=== PATIENT | female | born 1980 ===

== ENCOUNTER 2019-05-23 00:08 | Inpatient (IN) | payer OTHER, SELFPAY ==
[2019-05-23] MEDS ORDERED: hydrALAZINE 20 MG/ML VIAL SLOW IVP PRN ×3 (00:34→03:44)
[2019-05-23 00:43] VITALS: BMI 25.7
[2019-05-23] MEDS ORDERED: Lactated Ringer's 1,000 ML IV SCH (00:45)
--- NOTE | 2019-05-23 00:45 | PDOC.LDHP ---
Labor and Delivery H&P Chief complaint: contractions HPI: 38 y/o at 39w0d, patient of Dr. Rojas, presents with ctx and bloody show. Denies heavy VB, LOF, or other OB concerns. Patient scheduled for repeat LTCS on 05/30 but desires if labors. Has URI sx. ROS neg for HEENT, cv, pulm, gi, gu, neuro, psych, skin, musculoskeletal or constitutional symptoms other than mentioned above. OB History Details: 1 prior term LTCS Current complications: none Past Medical History: None Current medications: pre-bautista vitamins, iron, other (claritin) Previous surgical history: low tranverse CS Allergies/Adverse Reactions: Allergies Allergy/AdvReac Type Severity Reaction Status Date / Time No Known Allergies Allergy Verified 05/23/19 00:34 Social history: none - Physical Exam Vital signs reviewed and normal: yes General: NAD, resting Lungs: nonlabored breathing Abdomen: gravid Extremeties: no edema FHT: category 1 (135, mod variability, + accels, no decels) [place] contractions every: 4-5 mins - Vaginal Exam cm dilated: 4 Effacement: 100% Station: 0 - Assessment L&D Assessment: term patient in labor - Plan Plan: admit to L&D, labor augmentation if indicated, informed consent obtained, anesthesia consult for pain management
[2019-05-23] MEDS ORDERED: Misoprostol 200 MCG TAB PR PRN (01:57)
[2019-05-23] MEDS ORDERED: Ibuprofen 800 MG TAB PO PRN (01:57)
[2019-05-23] MEDS ORDERED: Promethazine HCl 25 MG/ML VIAL IM PRN ×4 (01:57→13:26)
[2019-05-23] MEDS ORDERED: Ondansetron PF 4 MG/2 ML Vial IVP PRN ×2 (01:57→03:44)
[2019-05-23] MEDS ORDERED: Carboprost 250 MCG/ML AMP IM PRN (01:57)
[2019-05-23] MEDS ORDERED: Methylergonovine 0.2 MG/ML VIAL IM PRN ×2 (01:57→03:44)
[2019-05-23] MEDS ORDERED: Acetaminophen 500 MG TAB PO PRN (01:57)
[2019-05-23] MEDS ORDERED: NS / Oxytocin 40 units/1000ml 1,000 ML IV PRN (01:57)
[2019-05-23] MEDS ORDERED: Lidocaine 1% (PF) 30 ML VIAL SC PRN (01:57)
[2019-05-23] MEDS ORDERED: Butorphanol Tartrate 1 MG/ML VIAL SLOW IVP PRN (01:57)
[2019-05-23] MEDS ORDERED: HYDROcodone/Acetaminophen 5/325 mg Tablet PO PRN ×3 (01:57→03:44)
[2019-05-23] MEDS ORDERED: Diphenoxylate HCl/Atropine Tablet PO PRN ×2 (01:57)
[2019-05-23] MEDS: Lactated Ringer's 1,000 ML IV SCH ×2 (02:00→11:08)
[2019-05-23 02:31] LABS: Hemoglobin 14.1 g/dL (12.0-16.0); Mean Corpuscular HGB CONC 33.9 g/dL (32.0-36.0); Mean Corpuscular Hemoglobin 30.3 pg (27.0-31.0); Mean Corpuscular Volume 89.4 fL (78.0-98.0); Mean Platelet Volume 8.4 fL (7.4-10.4); Platelet Count 219 thou/uL (130-400); RBC Distribution Width 13.1 % (11.5-14.5); Red Blood Cell (RBC) Count 4.67 mill/uL (4.20-5.40); White Blood Cell (WBC) Count 13.5 thou/uL (4.8-10.8)
[2019-05-23 03:08] LABS: HBSAg Index 0.15 S/CO (0-0.99); Hep B Surf Ag Non-Reactive S/CO (NonReactive)
[2019-05-23] MEDS ORDERED: Lanolin Ointment 7 GM TUBE TOP PRN (03:44)
[2019-05-23] MEDS ORDERED: Milk Of Magnesia 30 ML UDCUP PO PRN (03:44)
[2019-05-23] MEDS ORDERED: Preparation H Ointment 28 GM TUBE PR PRN (03:44)
[2019-05-23] MEDS ORDERED: Zolpidem Tartrate 5 MG TAB PO PRN (03:44)
[2019-05-23] MEDS ORDERED: Benzocaine-Menthol 82.5 ML CAN TOP PRN (03:44)
[2019-05-23] MEDS ORDERED: Misoprostol 200 MCG TAB VAG PRN (03:44)
[2019-05-23] MEDS ORDERED: Bisacodyl 10 MG SUPP PR PRN (03:44)
[2019-05-23] MEDS ORDERED: NS / Oxytocin 40 units/1000ml 1,000 ML IV SCH (03:45)
--- NOTE | 2019-05-23 03:47 | PDOC.OPDEL ---
OB Operative/Delivery Note Delivery Dr/Surgeon: MD Mariam Pre-Delivery Diagnosis: active labor Procedure/Post Delivery Dx: vaginal delivery after CS Weeks gestation: 39 Anesthesia: none - Findings A Sex: male Weight: 7 lb 1 oz - 1 min: 7 - 5 min: 9 - Additional Findings/Plan Placenta delivered: spontaneous Repaired Obstetrical Laceration: 3rd degree Estimated blood loss: 215 ml QBL Post delivery plan: routine recovery
[2019-05-23] MEDS ORDERED: Ketorolac Tromethamine 30 MG/ML VIAL IVP SCH (05:15)
[2019-05-23 05:19] LABS: Syphilis Antibody Nonreactive (Nonreactive); Syphilis Antibody Index 0.04 S/CO (<1.00 Non-Reactive)
[2019-05-23 06:23] LABS: #Lymphocytes 0.9 thou/uL (1.20-3.40); #Monocytes 0.4 thou/uL (0.11-0.59); #Neutrophils 17.5 thou/uL (1.40-6.50); %Basophils 0.1 % (0.0-1.0); %Eosinophils 0.2 % (0.0-10.0); %Monocytes 1.9 % (0.0-10.0); %Neutrophils 92.9 % (42.0-75.0); Hemoglobin 10.6 g/dL (12.0-16.0); Mean Corpuscular HGB CONC 33.7 g/dL (32.0-36.0); Mean Corpuscular Hemoglobin 29.9 pg (27.0-31.0); Mean Corpuscular Volume 88.7 fL (78.0-98.0); Mean Platelet Volume 7.8 fL (7.4-10.4); Platelet Count 226 thou/uL (130-400); RBC Distribution Width 12.9 % (11.5-14.5); Red Blood Cell (RBC) Count 3.54 mill/uL (4.20-5.40); White Blood Cell (WBC) Count 18.9 thou/uL (4.8-10.8)
[2019-05-23 06:27] LABS: INR-International Normal Ratio 1.1; PTT 28.2 SEC (22.9-36.1)
--- NOTE | 2019-05-23 06:30 | PDOC.BPN ---
- Brief Progress Note Called to room for evaluation of significant perineal pain. Examination revealed a large hematoma that ruptured and drained upon palpation with large clots and brisk bleeding. Tavo-seal applied with continued brisk bleeding and a running chromic stitch was used to reapproximate defect. Bleeding continued and another round of Tavo-seal was applied with a vaginal packing. Will continue to monitor for 30 minutes. If bleeding has not improved, will take to OR for further evaluation under anesthesia. H/H, coags pending. Vitals stable at this time.
--- NOTE | 2019-05-23 06:52 | PDOC.BPN ---
- Brief Progress Note Patient now dropping BPs. Will proceed with transfusion PRBCs. Will take to OR for further evaluation and management.
[2019-05-23] MEDS ORDERED: Fentanyl 100 MCG/2 ML VIAL ONE ×3 (06:59→09:42)
[2019-05-23] MEDS ORDERED: Midazolam HCl 2 mg/2 ml Vial ONE (06:59)
[2019-05-23] MEDS ORDERED: Promethazine HCl 25 MG/ML VIAL SLOW IVP PRN (08:37)
[2019-05-23] MEDS ORDERED: Ondansetron HCl/PF 4 MG/2 ML Vial IVP PRN (08:37)
--- NOTE | 2019-05-23 08:47 | OP ---
DATE OF PROCEDURE: 05/23/2019 PREOPERATIVE DIAGNOSES: 1. A 38-year-old female, status post successful vaginal after cesarian section with precipitous delivery on arrival with noted vaginal laceration and third-degree laceration. 2. Development of vaginal hematoma with persistent vaginal bleeding. POSTOPERATIVE DIAGNOSES: 1. A 38-year-old female, status post successful vaginal after cesarian section with precipitous delivery on arrival with noted vaginal laceration and third-degree laceration. 2. Development of vaginal hematoma with persistent vaginal bleeding. 3. Left vaginal sidewall hematoma with active bleeding, status post hematoma evacuation and repair. PROCEDURES PERFORMED: 1. Exam under anesthesia. 2. Evacuation of left vaginal sidewall hematoma. 3. Repair of left vaginal sidewall laceration. 4. Superficial closure of perineal laceration. PRODUCTION OR PLANT ENGINEER SURGEON: Livier Becerra MD, OB Hospitalist Service. ESTIMATED BLOOD LOSS: From the procedure, 25 mL. FINDINGS: Under anesthesia, there was an expanded left vaginal sidewall hematoma. This was evacuated after the stitch was removed. Some active bleeding on the sidewall was noted. Otherwise, no active bleeders in the upper right vaginal vault or posterior vaginal vault, or anterior vault noted. Some minimal separation of area of perineal repair. COUNTS: Correct x2. DISPOSITION: To PACU and then will be observed in the LICU upon further blood transfusion. DESCRIPTION OF PROCEDURE: The patient was taken back to the operating room for better exposure. She was given general endotracheal anesthetic agent and then placed in dorsal lithotomy position with Tesfaye stirrups. A Landa catheter was already in place. After prep was carried out, an exam under anesthesia was performed. There was expansion of the left vaginal sidewall with some oozing and bleeding noted. The stitches there were removed. A Breisky retractor was placed on the patient's right vaginal sidewall along with a Layton retractor blade. The hematoma was evacuated. The upper apex of the laceration was identified. A #1 chromic suture in a running locking fashion was placed in this area, securing hemostasis. The suture was cut. The vagina was then copiously irrigated. We observed the left vaginal sidewall, anterior sidewall, and posterior vagina with no other active bleeders noted or hematoma expansion. Vagina again was irrigated. We reapproximated the perineal laceration, superficial separation with a 2-0 chromic suture in a running locking fashion with hemostasis. The vagina again was irrigated. We observed with no active further heavy bleeding noted. The patient was then awakened and transferred to PACU and then plan for observation in LICU for completion of her transfusion with serial hematocrit to confirm her hemodynamic stability. Job ID: [id number]
[2019-05-23] MEDS ORDERED: Measles/Mumps/Rubella 10 MCG/0.5 ML VIAL SC ONE (09:00)
[2019-05-23] MEDS ORDERED: Varicella virus, LIVE 0.5 ML VIAL SC ONE (09:00)
[2019-05-23] MEDS ORDERED: Adacel (T-DAP) 0.5 ML SYRINGE IM ONE (09:00)
[2019-05-23] MEDS ORDERED: PROPOFOL 200 MG/20 ML VIAL ONE (10:23)
[2019-05-23] MEDS ORDERED: Succinylcholine Chloride 20 MG/ML 10 ml SYRINGE FS ONE (10:23)
[2019-05-23] MEDS ORDERED: Lidocaine 1% PF 5 ML VIAL ONE (10:23)
[2019-05-23] MEDS ORDERED: Meperidine HCl/PF 25 MG/ML VIAL SLOW IVP SCH (10:45)
[2019-05-23] MEDS ORDERED: Promethazine HCl 25 MG/ML VIAL IM SCH (10:45)
[2019-05-23] MEDS: Ferrous Sulfate 325 MG TAB PO SCH ×2 (11:06→19:24)
[2019-05-23] MEDS: Prenatal Vitamin 1 TAB PO SCH (11:06)
[2019-05-23] MEDS: Docusate Calcium (SURFAK) 240 MG CAP PO SCH ×2 (11:06→21:27)
--- NOTE | 2019-05-23 11:59 | PDOC.PP ---
Post Progress Note Post Day #: 0 Subjective: Pt is a 38yo female ppd#0 complicates with left vaginal wall hematoma requiring surgical intervention. was called to the room for severe pain. on exam the side wall feels to be expanding again. Pt given 50demerol and 12.5 phenergan for good pain control. Getting CT, coags and cbc now. Will pack with kerlex when she is back may use balkri ballon with packing intravaginally to help with pressure. vital signs stable and normal at this time. pulse 70s. bp 98/57 after demerol. Vital Signs (12 hours) Temp Pulse Resp BP BP Pulse Ox 05/23/19 11:20 77 18 92/50 L 98 05/23/19 10:50 86 18 98/57 L 97 05/23/19 10:16 98.9 F 89 18 104/68 98 05/23/19 00:32 99.1 F 95 17 136/60 98 Weight Weight 61.689 kg Result Diagrams: 05/23/19 06:00 Additional Labs: Post Labs Blood Type O POSITIVE 05/23/19 03:02 Hep Bs Antigen Non-Reactive S/CO (NonReactive) 05/23/19 02:18
[2019-05-23 12:08] LABS: Mean Corpuscular HGB CONC 33.6 g/dL (32.0-36.0); Mean Corpuscular Hemoglobin 29.8 pg (27.0-31.0); Mean Corpuscular Volume 88.7 fL (78.0-98.0); Mean Platelet Volume 8.1 fL (7.4-10.4); Platelet Count 187 thou/uL (130-400); RBC Distribution Width 12.6 % (11.5-14.5); Red Blood Cell (RBC) Count 3.36 mill/uL (4.20-5.40); White Blood Cell (WBC) Count 18.1 thou/uL (4.8-10.8)
[2019-05-23] MEDS ORDERED: Iopamidol 370 76% 100 ML VIAL ONE (12:10)
[2019-05-23 12:15] LABS: INR-International Normal Ratio 1.1; PTT 27.4 SEC (22.9-36.1); Prothrombin Time 14.4 SEC (12.0-14.7)
--- NOTE | 2019-05-23 12:51 | CT ---
CT PELVIS WITH IV CONTRAST: INDICATION: Vaginal delivery yesterday with surgical repair. Evaluate for vaginal sidewall hematoma. FINDINGS: Enlarged uterus with prominent endometrium. There is a large hematoma in the perineum to the left of midline which appears to extend from the upper vaginal wall to the vaginal vault and prod uces mass effect on the lower uterine segment on the left. This produces mass effect on the rectum. This hematoma is measured at approximately 10 cm AP dimension in the axial plane. There is free fluid in the pelvis consistent with status. IMPRESSION: 1. uterus. The endometrium is thickened and heterogeneous. Retained products of gestati on cannot be excluded. 2. Large hematoma involving the upper vagina, vaginal vault, and extending to the lower uterine segm ent producing mass effect from the left. There is mass effect on the rectum. POS: OFF
--- NOTE | 2019-05-23 13:44 | PDOC.EVN ---
Event Note - Event Note Event Note: ct with 10cm hematoma putting pressure on lower uterin segment and rectum. packed with one roll of kerlex and bakri ballon on side of hematoma filled with 30cc saline (point at which it became difficult to add more.) will follow h/h coags. if continues to fall with repeat ct and decide next course of actions. txa now 1gm followed by 1gm over 8h 05/23/19' 1726 cbc and coags reviewed. fibrinogen unchanged at 300, h/h dropped to 9.3/27.8 platelets stable at 195,000 pt reports she is doing well. pain over all better vitals stable bp 100-110s/60s-70s pulse 70s-80s pt is pale but nailbeds and conjuntiva with good color I no signs of continued blood loss. will recheck h/h 8pm. if stablizing will discontinue serial testing. 05/23/19 2100 repeat labs h/h 8.8/25.7 platelets 185 PT/inr/ptt fibrinogen unchanged pt vitals have remained unchanged. u/o has been 100cc in the last hour, 400cc in prior shift. Pt has good color, is warm to touch, has good cappilary refill. will repeat h/h in four hours. Will hold off reimaging as coag profile and platelets all essentially unchanged.
[2019-05-23] MEDS ORDERED: Tranexamic Acid 1,000 MG in Sodium Chloride 0.9% 250 ML 250 ML IVPB SCH (13:45)
[2019-05-23] MEDS: HYDROcodone/Acetaminophen 5/325 mg Tablet PO PRN ×2 (15:01→19:24)
[2019-05-23] MEDS: Ibuprofen 800 MG TAB PO SCH ×2 (15:01→21:27)
[2019-05-23] MEDS: Tranexamic Acid 1,000 MG in Sodium Chloride 0.9% 100 ML IVPB SCH ×2 (15:02→16:33)
[2019-05-23 15:53] LABS: Hemoglobin 9.3 g/dL (12.0-16.0); Mean Corpuscular HGB CONC 33.6 g/dL (32.0-36.0); Mean Corpuscular Hemoglobin 30.1 pg (27.0-31.0); Mean Corpuscular Volume 89.4 fL (78.0-98.0); Mean Platelet Volume 8.1 fL (7.4-10.4); Platelet Count 195 thou/uL (130-400); RBC Distribution Width 12.7 % (11.5-14.5); Red Blood Cell (RBC) Count 3.11 mill/uL (4.20-5.40); White Blood Cell (WBC) Count 19.9 thou/uL (4.8-10.8)
[2019-05-23 15:59] LABS: INR-International Normal Ratio 1.2; PTT 26.8 SEC (22.9-36.1); Prothrombin Time 14.8 SEC (12.0-14.7)
[2019-05-23] MEDS ORDERED: Polyethylene Glycol 3350 17 GM Packet PO SCH (18:15)
[2019-05-23 20:09] LABS: Hemoglobin 8.8 g/dL (12.0-16.0)
[2019-05-23 20:31] LABS: Hemoglobin 8.8 g/dL (12.0-16.0); Mean Corpuscular HGB CONC 34.1 g/dL (32.0-36.0); Mean Corpuscular Hemoglobin 30.3 pg (27.0-31.0); Mean Corpuscular Volume 88.7 fL (78.0-98.0); Mean Platelet Volume 7.9 fL (7.4-10.4); Platelet Count 186 thou/uL (130-400); RBC Distribution Width 12.7 % (11.5-14.5); Red Blood Cell (RBC) Count 2.89 mill/uL (4.20-5.40); White Blood Cell (WBC) Count 16.4 thou/uL (4.8-10.8)
[2019-05-23 20:42] LABS: INR-International Normal Ratio 1.2; PTT 27.3 SEC (22.9-36.1); Prothrombin Time 14.8 SEC (12.0-14.7)
[2019-05-24] MEDS: Tranexamic Acid 1,000 MG in Sodium Chloride 0.9% 100 ML IVPB SCH ×2 (00:05→07:44)
[2019-05-24 00:29] LABS: Hemoglobin 8.2 g/dL (12.0-16.0); Mean Corpuscular HGB CONC 34.3 g/dL (32.0-36.0); Mean Corpuscular Hemoglobin 30.4 pg (27.0-31.0); Mean Corpuscular Volume 88.8 fL (78.0-98.0); Mean Platelet Volume 7.7 fL (7.4-10.4); Platelet Count 189 thou/uL (130-400); RBC Distribution Width 13.1 % (11.5-14.5); Red Blood Cell (RBC) Count 2.69 mill/uL (4.20-5.40)
[2019-05-24] MEDS ORDERED: Sodium Chloride 0.9% 10 ML ONE (02:00)
[2019-05-24 04:40] LABS: Mean Corpuscular Hemoglobin 30.4 pg (27.0-31.0); Mean Corpuscular Volume 89.4 fL (78.0-98.0); Mean Platelet Volume 7.8 fL (7.4-10.4); Platelet Count 183 thou/uL (130-400); RBC Distribution Width 13.1 % (11.5-14.5); Red Blood Cell (RBC) Count 2.63 mill/uL (4.20-5.40); White Blood Cell (WBC) Count 16.5 thou/uL (4.8-10.8)
[2019-05-24] MEDS: Ibuprofen 800 MG TAB PO SCH ×3 (06:20→21:36)
[2019-05-24] MEDS: HYDROcodone/Acetaminophen 5/325 mg Tablet PO PRN (06:31)
--- NOTE | 2019-05-24 07:46 | PRG ---
DATE OF SERVICE: 05/24/2019 SUBJECTIVE: The patient is a 38-year-old female, who is day 1, postoperative day 1, status post a vaginal after complicated by a vaginal wall hematoma, requiring surgery, followed by persistent development of hematoma. Postoperatively, the patient reported the return of significant vaginal and vulvar pain. On exam, it is noticeable that there is a development of some mucosal mass and firmness on that left side. CT scan demonstrated a large hematoma developing up to 10 cm in the largest dimension. The decision was made to pack the vagina with a roll of Kerlix and a Bakri balloon, which was inflated to 30 mL of water for added pressure. The serial labs continued to show stable coags, fibrinogen, platelets. Her hemoglobin continued to drop until about 4 o'clock this morning, where it stabilized at about 8. Vital signs throughout the day and night have always remained stable with her pressures in the 100s, pulse in the 70s to 80s, and urine output improving as the night went on. The patient also reported after the packing, that her pain had improved and has not had significant pain since that time. CT scan was repeated at 1 o'clock this morning given the continued drop in her hemoglobin. Final report is not available, but on inspection, it does not appear to be expanding at all as compared to the first CT. OBJECTIVE: VITAL SIGNS: Most recent, blood pressure is 118/68, temperature 98.1, pulse 101, respiratory rate, and O2 saturation 97%. Urine output; she has had a total out of 1500 mL with 1100 mL on the last 12 hours. LABORATORY DATA: Most recent hemogram, white count 16.5 down from 19.9, hemoglobin of 8, hematocrit 23.5, and platelets of 183,000. ASSESSMENT AND PLAN: The patient is a 38-year-old female, day 1, complicated by a vulvar hematoma, status post surgery, complicated by redevelopment of a vulvar hematoma, which seems to resolve with packing. We have removed the packing this morning. Landa catheter will remain in place through the morning hours just to watch her urine output. H and H have been scheduled for noon. Should this remain stable, catheter will be removed and the patient can proceed with a fairly routine care. Of note, she has had a cough through the night. She does report that this cough has been present for weeks now. I have added dextromethorphan to her regimen as she is on hydrocodone, which may service some cough suppressant also. The patient has also been on Lysteda since yesterday morning. I will be transitioning her over to p.o., as the patient had been on IV Lysteda since her first couple doses. Dr. Ceballos is the oncoming physician, who will be assuming care. Job ID: [id number]
[2019-05-24] MEDS: Ferrous Sulfate 325 MG TAB PO SCH ×2 (08:55→18:03)
[2019-05-24] MEDS: Docusate Calcium (SURFAK) 240 MG CAP PO SCH ×2 (08:55→21:36)
[2019-05-24] MEDS: Polyethylene Glycol 3350 17 GM Packet PO SCH (08:55)
[2019-05-24] MEDS: Prenatal Vitamin 1 TAB PO SCH (08:55)
[2019-05-24] MEDS ORDERED: Tranexamic Acid 650 MG TAB PO SCH (09:00)
--- NOTE | 2019-05-24 09:08 | PRG ---
DATE OF SERVICE: 05/24/2019 Please labelled this as day #1/postop day #1. In brief, I assumed care this morning from Dr. Gomez and was briefed on this patient. This patient had a successful , but developed a left vaginal/ vulvar expanding hematoma that required OR intervention with Dr. Becerra and Dr. Ballesteros. This was subsequently packed by Dr. Gomez and also tamponaded with the balloon. At this point, the packing is out and so was the balloon. Landa catheter remains. She has received 2 units of packed cells. Her estimated blood loss by the record and by verbal check out from the other physicians is at her blood loss, was around 1500 mL at max. Her last hemoglobin value was 8 with a hematocrit of 24. I have seen the patient at bedside along with Dr. Jocy White. We have reviewed her care up to this time and have done a visual assessment of the perineum. I do not see any evidence of expanding hematoma at this time. SUBJECTIVE: The patient is alert and feeling well. OBJECTIVE: VITAL SIGNS: Reviewed. She is afebrile. LABORATORY DATA: Hematocrit is 24 as discussed previously. Landa in use. MEDICATIONS GIVEN: She is currently on Lysteda. ASSESSMENT: This is a patient from a vaginal after section with a left hematoma, requiring surgical intervention. Status post 2 units packed cells. PLAN: 1. I will order to remove the Landa now (Yanet, our RN is with me now). 2. I will stop the Lysteda as there is no further evidence of bleeding. 3. The patient also did receive tranexamic acid IV and so, we will stop the oral medication. 4. We will just observe the patient today and see if there are any changes. 5. The patient had a repeat CT scan to look for any evidence of expansion, but clinically there is none. That second CT scan result is still pending. We will follow up. 6. No acute needs at this time. Job ID: [id number] [facility]
--- NOTE | 2019-05-24 12:22 | CT ---
PRELIMINARY REPORT/[facility]/EMERGENCY AFTER HOURS PROCEDURE: CT Pelvis with Intravenous Contrast HISTORY: F/u hematoma. Vaginal delivery 05/22/2019 with surgical repair. COMPARISON: 05/23/2019. FINDINGS: RETRO/PERITONEUM: Moderate persistent blood and mild free air in the lower abdomen and pelvis. LYMPH NODES: No lymphadenopathy. PELVIC ORGANS: Enlarged uterus with endometrial fluid and air. Fluid-containing defect in the ventral lower uterine segment, query recent surgery or ruptured old incision. Landa de compressed urinary bladder. VASCULATURE: Unremarkable. BODY WALL: Healed ventral wall incision, query prior . Mild decrease in size of the large 1 1.1 (CC) x 9.1 (AP) cm left posterior perineal hematoma extending to the left mid pelvis, with mass-e ffect on the lower uterine segment and rectum. Tamponade vaginal/cervical canal balloon catheter wit h the tip in the lower uterine segment. BONES: No fracture or suspicious osseous abnormality. IMPRESSION: Decreased size of the hematoma extending from the left mid pelvis to the perineum. ELECTRONICALLY SIGNED BY: Jovita Patricio M.D. May 24, 2019 2:27:56 AM PHLEBOTOMIST SUPERVISOR/INSTRUCTOR This report is intended for review by the ordering physician only, in accordance of law. If you recei ve this report in error, please call [facility] at [phone]. FINAL REPORT I agree with the preliminary report provided. There is decrease in size of the hematoma extending fr om the left mid pelvis into the perineum. POS: BH
[2019-05-24 12:23] LABS: Hemoglobin 8.6 g/dL (12.0-16.0); Mean Corpuscular Hemoglobin 30.6 pg (27.0-31.0); Mean Corpuscular Volume 89.9 fL (78.0-98.0); Mean Platelet Volume 7.9 fL (7.4-10.4); Platelet Count 215 thou/uL (130-400); RBC Distribution Width 13.1 % (11.5-14.5); White Blood Cell (WBC) Count 18.9 thou/uL (4.8-10.8)
[2019-05-24] MEDS ORDERED: Iopamidol 370 76% 50 ML VIAL FS ONE (13:09)
[2019-05-24] MEDS: Dextromethorphan Polistirex 30 MG/5 ML (89 ML BOTTLE) PO PRN (14:37)
--- NOTE | 2019-05-24 16:24 | PDOC.EVN ---
Event Note - Event Note Event Note: Urinary retention Note 1620 Just got off the phone with Yanet, the patient's RN. Patient states she is concerned about voiding and feels she cant empty. Bladder scan shows bladder with about 400ml. I have ordered an I/O bladder cath for now rather than a sanchez to reduce UTI risk with an indwelling. We will reevaluate void ability this pm. If rentention persists, will replace sanchez. I reviewed the CT scan from midnight, no reason to suspect the hematoma is blocking outflow tract ().
--- NOTE | 2019-05-24 17:17 | PRG ---
DATE OF SERVICE: 05/24/2019 The date is May 24, 2019 Time of intervention was 1645 hours. IN AND OUT CATHETERIZATION: In brief, I was called to the bedside to evaluate the patient in room 343 by Mariah, the patient's nurse. As I had previously documented, there was some concern about urinary retention based on the bedside bladder scan performed by the RN. I was called because they in and out catheterized the patient twice without any urine returned. I arrived within 2 minutes of being called and evaluated the urethra. There was no urethral trauma or deviation. I asked for another in-and-out catheter set, and under sterile conditions, I performed an in-and-out catheterization of the bladder, that was effortless and without deviation. No urine returned. It is important to note that the patient has spontaneously just voided. We performed another bedside scan (while I was in the room) and this showed less than 60 mL. I do not believe that there is any urinary retention at this time, especially since she was able to void and I received 0 on effortless in-and-out catheterization of the bladder. I do not believe that there is any urethral or bladder trauma at this time. It is okay to allow her to continue her spontaneous voids. Job ID: [id number] MTDD
[2019-05-25] MEDS: Dextromethorphan Polistirex 30 MG/5 ML (89 ML BOTTLE) PO PRN (02:41)
[2019-05-25] MEDS: Ibuprofen 800 MG TAB PO SCH ×2 (06:18→15:47)
--- NOTE | 2019-05-25 08:37 | DIS ---
DATE OF ADMISSION: 05/23/2019 DATE OF DISCHARGE: 05/25/2019 PRINCIPAL DIAGNOSES: 1. Vaginal after . 2. Evacuation and repair of left vaginal sidewall hematoma. 3. Red blood cell transfusion (two packs). 4. Acute blood-loss anemia from hematoma. HOSPITAL COURSE: In brief, this patient was admitted by Livier Becerra, who was the physician entertainment & media correspondent on May 23, 2019. The patient was for trial of labor after . The patient underwent a vaginal after with a resulting left vaginal sidewall/vulvar expanding hematoma. Dr. Ballesteros and Dr. Becerra proceeded to the operating room for surgical management of this procedure. This included an exam under anesthesia and the evacuation of the hematoma. It is important to note that there was also a third-degree perineal laceration noted at the time of delivery. For full details of the operative repair, please turn to the dictation dated May 23, [address] Ballesteros and the notes by Livier Becerra. Dr. Gomez assumed care of the patient on May 23, 2019 and required repacking of the hematoma site along with the Bakri balloon for tamponade. The Bakri balloon did successfully tamponade any further bleeding. The intervention by Dr. Gomez resulted in no further vaginal bleeding. The patient did receive 2 units packed red blood cells during this time frame. I evaluated the patient on May 24, 2019 and again on the morning of 05/25/2019 and found no further evidence of bleeding or hematoma reaccumulation. She was able to void well and ambulate. Final hematocrit value was stabilized at 25, down from 41.7 on admission. The plan was to discharge the patient home on May 25, 2019 and continue with her established followup at [facility] on May 27, 2019. Job ID: [id number]
[2019-05-25 08:46] VITALS: BP 119/72; TEMP 98.1
[2019-05-25] MEDS: Prenatal Vitamin 1 TAB PO SCH (08:54)
[2019-05-25] MEDS: Ferrous Sulfate 325 MG TAB PO SCH (08:54)
[2019-05-25] MEDS: Polyethylene Glycol 3350 17 GM Packet PO SCH (08:55)
[2019-05-25] MEDS: Docusate Calcium (SURFAK) 240 MG CAP PO SCH (08:55)
[2019-05-25] MEDS ORDERED: Magnesium Citrate 300 ML BOT PO SCH (09:45)
[2019-05-25] MEDS ORDERED: Preparation H Ointment 57 gram tube RC PRN (15:45)
== END 2019-05-25 17:00 | disposition home or self-care (01) | DRG 768 ==
LOC: L&D/OP 00:08 → L&D 02:20 → 3SW 10:32
PROVIDERS: ADMIT Obstetrics & Gynecology; ATTEND Obstetrics & Gynecology
PROC: 10E0XZZ Delivery of Products of Conception, External Approach (ICD-10-PCS; principal; 2019-05-23)
PROC: 0DQR0ZZ Repair Anal Sphincter, Open Approach (ICD-10-PCS; 2019-05-23)
PROC: 3E0P7VZ Introduction of Hormone into Female Reproductive, Via Natural or Artificial Opening (ICD-10-PCS; 2019-05-23)
PROC: 3E033VJ Introduction of Other Hormone into Peripheral Vein, Percutaneous Approach (ICD-10-PCS; 2019-05-23)
PROC: 0UCG7ZZ Extirpation of Matter from Vagina, Via Natural or Artificial Opening (ICD-10-PCS; 2019-05-23)
PROC: 0UQGXZZ Repair Vagina, External Approach (ICD-10-PCS; 2019-05-23)
PROC: 30233N1 Transfusion of Nonautologous Red Blood Cells into Peripheral Vein, Percutaneous Approach (ICD-10-PCS; 2019-05-23)
DX: O62.3 Precipitate labor (principal); Z37.0 Single live birth; O71.7 Obstetric hematoma of pelvis; O70.20 Third degree perineal laceration during delivery, unspecified; O71.4 Obstetric high vaginal laceration alone; D62 Acute posthemorrhagic anemia; O34.211 Maternal care for low transverse scar from previous cesarean delivery; O90.81 Anemia of the puerperium; Z3A.39 39 weeks gestation of pregnancy
CPT/HCPCS: 36415; 36430; 72193; 85027; 85384; 85610; 85730; 86780; 86850; 86900; 86901; 87340; 99285; J0595; J2001; J2175; J2250; J2550; J2704; J3010; J3490; J7050; P9016; Q9967